=== PATIENT | female | born 1990 | race African-American/Black ===

== ENCOUNTER 2017-01-14 11:37 | Emergency (ER) | payer BC, MEDICAID ==
[2017-01-14 11:42] VITALS: BP 143/72
[2017-01-14] MEDS ORDERED: TETRACAINE HCL 0.5% OPH SOLN 2 ML OS ONE (12:12)
--- NOTE | 2017-01-14 12:13 | ER Document Report ---
ED Eye Complaint - General Chief Complaint: Eye Problem Stated Complaint: EYE PAIN Time Seen by Provider: 01/14/17 12:12 TRAVEL OUTSIDE OF THE [place] IN LAST 30 DAYS: No - HPI Patient complains to provider of: left pink eye Onset: Other - saturday Eye location: Left Injury: No Occurred at: Home - daughter had it last week then her got it on saturday Quality of pain: Other - itchy, no FB sensation Severity: None Safety glasses worn: No Contact lenses worn: No Associated symptoms: Itching - Related Data Allergies/Adverse Reactions: No Known Allergies Allergy (Verified 01/14/17 11:41) Past Medical History - Social History Smoking Status: Never Smoker Chew tobacco use (# tins/day): No Frequency of alcohol use: None Drug Abuse: None Family History: Reviewed & Not Pertinent - Past Medical History Cardiac Medical History: Denies: Hx Coronary Artery Disease, Hx Heart Attack, Hx Hypertension - NEVER DIAGNOSED BUT SOMETIMES SYSTOLIC HIGH Pulmonary Medical History: Denies: Hx Asthma, Hx Bronchitis, Hx COPD, Hx Pneumonia Neurological Medical History: Denies: Hx Cerebrovascular Accident, Hx Seizures Renal/ Medical History: Denies: Hx Peritoneal Dialysis Musculoskeltal Medical History: Denies Hx Arthritis Past Surgical History: Reports: Hx Tubal Ligation Review of Systems - Review of Systems Constitutional: No symptoms reported EENT: See HPI -: Yes All other systems reviewed and negative Physical Exam - Vital signs Vitals: Temp Pulse Resp BP Pulse Ox 98.4 F 95 20 143/72 H 99 01/14/17 11:42 01/14/17 11:42 01/14/17 11:42 01/14/17 11:42 01/14/17 11:42 - General General appearance: Appears well, Alert In distress: None - HEENT Eyes: Tears Conjunctiva: Injected Cornea: Normal. No: Corneal abrasion, Corneal ulcer, Dendrite, Embedded foreign body, Flourescein stain uptake, Opacified, Superficial foreign body, Other Extraocular movements intact: Yes Eyelashes: Normal Pupils: PERRL Visual acuity- Right eye: 20/30 Visual acuity- Left eye: 20/30 Visual acuity- Both eyes: 20/20 Corrective lenses worn: Yes - patiend wear prescrive glasses Lids everted for exam: bilateral: Normal Fundascopic: Normal Nerve palsy: No Visual santizo normal: Yes Course - Re-evaluation Re-evalutation: 01/14/17 12:46 Patient is a 26-year-old female hemodynamic stable, no acute distress. No evidence of retained foreign body, abrasion noted on the eye. Visual acuity intact. Will treat for bacterial conjunctivitis with Polytrim. Given referral for ophthalmology After performing a Medical Screening Examination, I estimate there is LOW risk for a RETAINED CORNEAL or LID FOREIGN BODY, DEEP SPACE INFECTION (e.g., ORBITAL CELLULITIS OR ABSCESS), ACUTE GLAUCOMA, PENETRATING GLOBE INJURY, RETINAL DETACHMENT, or MENINGITIS thus I consider the discharge disposition reasonable. I have reevaluated this patient multiple times and no significant life threatening changes are noted. Also, there is no evidence or peritonitis, sepsis , or toxicity. The patient and I have discussed the diagnosis and risks, and we agree with discharging home with outpatient follow-up with the understanding that symptoms and presentations can change. We also discussed returning to the Emergency Department immediately if new or worsening symptoms occur. We have discussed the symptoms which are most concerning (e.g., changing or worsening pain, vision changes, neck stiffness or fever) that necessitate immediate return. - Vital Signs Vital signs: Temp Pulse Resp BP Pulse Ox 98.4 F 95 20 143/72 H 99 01/14/17 11:42 01/14/17 11:42 01/14/17 11:42 01/14/17 11:42 01/14/17 11:42 Discharge - Discharge Clinical Impression: Conjunctivitis Qualifiers: Conjunctivitis type: acute Acute conjunctivitis type: bacterial Laterality: left Qualified Code(s): H10.32 - Unspecified acute conjunctivitis, left eye Condition: Good Disposition: HOME, SELF-CARE Instructions: Antibiotic Therapy ([facility]), Conjunctivitis ([facility]), Eyedrop Use ([facility]) Forms: Return to Work Referrals: KIP MOCTEZUMA MD [ACTIVE STAFF] - Follow up as needed
[2017-01-14] MEDS ORDERED: POLYMYXIN B SULFATE/TMP OPH SOLN (10 ML/ER DISP) OS PRN (12:28)
== END 2017-01-14 12:55 | disposition home or self-care (01) ==
LOC: ER 11:37
DX: H10.32 Unspecified acute conjunctivitis, left eye (principal); B96.89 Other specified bacterial agents as the cause of diseases classified elsewhere
CPT/HCPCS: 99282; J3490